=== PATIENT | male | born 1930 | race Caucasian/White ===

== ENCOUNTER 2017-03-17 07:31 | Inpatient (IN) | payer MEDICARE ==
[~2017-03-17] VITALS: Ht 182.9 cm; Wt 88.2 kg
--- NOTE | ~2017-03-17 | PN ---
[facility] [address] [place], [place] [address] Draft This is a hospital day #2, I admitted him yesterday with a clinical diagnosis supported by x-rays of gastric outlet obstruction, likely due to taking too much Naprosyn for back pain and he subsequently showed up with this problem for about a week. We put him in yesterday, NG tube, hospitalist consult, IV fluid management, and the hospitalist is helping us with him also and he is on a proton pump drip, Protonix 10 mg an hour. Overnight, he has done okay. His vital signs have done alright. His blood pressure this morning was 122/59, his pulse was 70, respiratory rate 16, temperature is 98.7, pulse oximetry is 95 to 98 overnight. Hospitalist is helping manage his medicine and his blood pressure issues. NG tube is not putting a whole lot out at 240. His urine output is quite adequate at 1530. He has had 3263 in IV fluid. He was somewhat dehydrated when he came in. PHYSICAL EXAMINATION ABDOMEN: On examination his belly is much softer and I can palpate, can't feel mass or anything really worrisome. LABORATORY DATA His acute abdomen series this morning shows no free air, stool in his colon. The remainder of his labs were okay. His white count is still in the 8000 range with a normal diff and his chem panel was okay with normal amylase and lipase and normal LFTs. PLAN Discussed his management with the hospitalist and with surgical consultation at [facility] concerning plans on this fellow. Right now, he is stable. I do not think we should scope him yet, because I do not want to change what looks like probably a contained perforation into a free perforation and having to do an emergency surgery on this fellow. With a little bit of luck, with support and proton pump inhibitor drip, Protonix 10 mg an hour, he very well may have some reduction in his inflammation and open up. The plan is to just sit tight on him and get a PICC line, probably start some TPN, and just watch him closely over the weekend and probably get upper GI, put some Gastrografin down his NG tube on Wednesday to see if he is completely obstructed or see if things open up a little bit. If things open up a little bit, he likely could then be educated about not taking any more naproxen and hopefully get him on something like tramadol for pain and keep him off the aspirin and keep him on proton pump inhibitors and possibly get elective EGD on him here next month to 6 weeks to prove that this is a malignancy, I do not think it is with his history, anyhow the game plan is to treat him expectantly for the time being and see where this go. If it becomes a complete obstruction and does not resolve, he likely should have surgery and then I would discuss this with the local surgeons and/or the surgeons at [facility]. PATIENT NAME: LUIZ PEREZ BRANDI PROGRESS NOTE DATE OF : 31 PHYSICIAN: OLESYA OAKES MD REPORT #: [id number] REPORT IS CONFIDENTIAL AND NOT TO BE RELEASED WITHOUT AUTHORIZATION [address] [place] [address] Draft MD PING Benton/Modl /[id number] CC: PATIENT NAME: PEREZLUIZ PROGRESS NOTE DATE OF : 31 PHYSICIAN: OLESYA OAKES MD REPORT #: [id number] REPORT IS CONFIDENTIAL AND NOT TO BE RELEASED WITHOUT AUTHORIZATION
--- NOTE | ~2017-03-17 | PN ---
[facility] [address] [place], [place] [address] Draft DATE OF SERVICE: 03/19/2017 IDENTIFICATION: This is an 87-year-old male who I admitted almost 48 hours ago for apparent gastric outlet obstruction, likely secondary to doubling up on his Naprosyn for back pain and also taking aspirin, and came in with what looks like pyloric/proximal duodenal obstruction, probably due to ulcer disease and remotely possibly due to malignancy. We have been treating him with nasogastric suctioning, got a PICC line and TPN is running in at 50 mL per hour. He has excellent urine output and he is on proton pump inhibitor drip that being Protonix. He seems to be doing okay. His vital signs are fine. Blood pressure has been good. Blood pressure this morning was 130/56, respiratory rate 15, pulse 71, afebrile. Urine output today has been 1500 so far, looks like only about 200 out of his NG tube. It has a little bit of color to it, which I think is good, because that means that it has bowel staining or kind of opening up a little bit, we think. When he first came in, it looked like pure white hydrochloric acid and he seems to be doing okay. We did not have any current labs on him today. Yesterday, his white count was 8.2, hematocrit was 41.9, platelets were 183. He has SCDs. He is ambulating adequately and his belly is soft, nothing has really changed. My game plan after discussing him with other consultants has been to sit tight, keep his proton pump inhibitor drip going at least 48, possibly 72 hours and then switch him over to Protonix 40 mg IV b.i.d., ride him through the weekend on TPN to keep him nutritionally supported and likely get a Gastrografin upper GI on Wednesday through his NG tube and see if he has opened up some. If he has opened up some, we could possibly get his NG tube out, give him clear liquid diet and hopefully send him home on liquid diet and tell him to stay on that for a quite a while and at some point in the future to get EGD when all this has settled down. I am a little bit scarred to do EGD right now and on his CT scan, it looks like he could have contained perforation or else he has just got some real chewed up mucosa and submucosa at his pylorus and duodenum, but I do n ot want to tempt the devil and scope him and maybe make him into a wide open perforation and emergency surgery right now with this 87-year-old, I think less is better. Should he have a complete obstruction, then he likely would need surgical intervention on Wednesday. He would likely need surgical intervention, possibly just gastrojejunostomy and keep him on proton pump inhibitors lifetime and then the decision would be have to be made whether that should be done at a larger institution versus our [facility]. There are specialists who likely could do this with a laparoscope and minimize the invasiveness, etc., etc., etc. All in all, right now, he seems to be doing okay, the hospitalist is following up with him at the present time, I think I have decided to withhold Lovenox or subcu heparin, I do not want to get this darn ulcer or whatever it is bleeding. He is ambulating well and he is tolerating SCDs nicely and right now, we are going with that for DVT prophylaxis. All in all, he seems to be doing okay. I will order some labs drawn in for tomorrow morning and just follow him closely with the PATIENT NAME: LUIZ PEREZ BRANDI PROGRESS NOTE DATE OF : 31 PHYSICIAN: OLESYA OAKES MD REPORT #: [id number] REPORT IS CONFIDENTIAL AND NOT TO BE RELEASED WITHOUT AUTHORIZATION [facility] [address] [place], [place] [address] Draft hospitalist and pray like heck that he improves adequately enough to discharge him without any further interventions. MD PING Benton/Enoch /[id number] CC: PATIENT NAME: LUIZ PEREZ BRANDI PROGRESS NOTE DATE OF : 31 PHYSICIAN: OLESYA OAKES MD REPORT #: [id number] REPORT IS CONFIDENTIAL AND NOT TO BE RELEASED WITHOUT AUTHORIZATION
--- NOTE | ~2017-03-17 | HP ---
[facility] [address] [place], [place] [address] Draft DATE OF ADMISSION: 03/17/17 IDENTIFICATION This is an 87-year-old male, who was seen by the ER physician with a chief complaint of could not eat, nausea, and vomiting. An ER doctor worked him up, found him to have normal labs as far as his white count, hematocrit, platelets, might be a little bit dry, normal CMP with normal amylase and lipase and LFTs and ended up getting a CT scan, which showed an apparent gastric outlet obstruction. This is likely either an ulcer or a malignancy or both. Of note, he has been taking Naproxen and Aleve, I think both for arthritis pain, maybe only one of them, and he has also been on aspirin as potential causes for ulcers. CT scan, I have not yet gone over it with radiologist, but it looks like he has got plenty of edema at the pylorus and the first part of the duodenum, no free air. Basically, the short and long of it is extensive PARQ was accomplished by myself for this patient concerning options, which include initial management here, put him in, hydrate him onn a sogastric suction, likely do an EGD on him tomorrow or the next day and see what we determine is going on. I did tell him that I do not do balloon dilatations of the duodenum or the antrum or the stomach and if that would save him surgery that would have to be done by Gastroenterology either at the [facility] or at another institution and I told him if he had a malignancy, it is pretty serious step in the option of going to a larger place versus having it done here would be discussed by me, with him and his friends ,we will cross those bridges as necessary. He preferred to stay here initially, so I am going to admit him at the hospitalist consult on him, put him on a proton pump inhibitor, Protonix drip 10 mg an hour, give him pain management, nausea management, 18-Romanian NG tube and see where this goes. He does know that his urine has gone a little bit darker and I do note that his BUN is 27. PAST MEDICAL HISTORY The patient is not allergic to anything. He takes a fair amount of medicines he brought with him in the bag, Naproxen 1 in the morning and 1 in the evening, Aleve OTC, I am not sure whether or not he has been taking both of them and he cannot really tell me, Atenolol 25 mg daily, Aspirin 81 mg daily, Amlodipine 2.5 mg daily, Atorvastatin 20 mg at bedtime, Terazosin 4 mg at bedtime, Lisinopril 5 mg daily. OPERATIONS Included hernia 5 years ago and a pacemaker. He has a history of hypertension. He says he has got a history of diabetes, but not tuberculosis, seizures, or transfusions. He says he quit smoking 50 years ago, rarely uses alcohol and has no history of thromboembolic disease. SOCIAL HISTORY He is a . He has 1 child in [place], but did not give me any name or phone number. He was in the [place] years ago. He lives in [place]. PATIENT NAME: LUIZ PEREZ BRANDI HISTORY AND PHYSICAL DATE OF : 31 PHYSICIAN: OLESYA OAKES MD REPORT #: [id number] REPORT IS CONFIDENTIAL AND NOT TO BE RELEASED WITHOUT AUTHORIZATION [facility] [address] [place], [place] [address] Draft REVIEW OF SYSTEMS Negative for NM, negative for stroke, negative for Lyme disease. Positive for his present illness, positive for arthritis and old age as far as musculoskeletal disease goes, positive for easy bruising of his skin. Negative for lymphatic problems, negative for blood problems such as hepatitis. Positive for what sounds like prostatism. Negative for neurological problems such as anxiety or depression and negative for motor and sensory, speech, I presume walked in here. PHYSICAL EXAMINATION VITAL SIGNS: Recorded in the ER. They were all okay. I do not have right in front of me. He has got an EKG, which shows ventricular pacing. HEAD, EYES, EARS, NOSE AND THROAT: Normal. NECK: Without jugular venous distention, masses, or bruits. CHEST: Clear. HEART: Regular rate and rhythm. I do not hear any rubs, gallops, or murmurs. He has got a left anterior chest pacemaker subcutaneously. BELLY: He does not relax real good. He is a robust, big fellow. I do not detect any peritonitis or tenderness, but he will not relax and let me feel see if I can feel a mass. EXTREMITIES: Femoral pulses as well as pedal pulses were normal. I could not feel his aortic pulsation because he was not relax. RECTAL: He says he is up-to-date on rectal exam. IMPRESSION An elderly fellow with some medical comorbidities, primarily probably hypertension and maybe arythmia, I'm not sure why he is on Amlodipine. He may have gotten confused about medication for arthritis and may just have bad ulcer. He also could have a malignancy. PLAN To get him an NG tube, IV hydration, follow him closely, get the hospitalist to see him. I will go over his CT with the radiologist in person when that person is available. IV fluids, repeat his labs in the morning, get acute abdomen series in the morning. As long as everything goes okay, likely add him on sometime tomorrow for EGD with biopsies if possible and see where all this shakes out. With a little bit luck, he get well without further to do and likely need to be rescoped again at some point in the future and hopefully it is not a malignancy and he can have fun being an old fellow. He certainly understands the options and the choices that we have. If he were to have a malignancy would be a big decision whether or not to have surgery done here versus elsewhere and if we did not give over his gastric outlet obstruction that quite is big as malignancy decision. Anyhow, I have given him certainly multiple choices and tried to educate him. We will also put SCDs on him and we will make him an inpatient for starters and see PATIENT NAME: LUIZ PEREZ HISTORY AND PHYSICAL DATE OF : 31 PHYSICIAN: OLESYA OAKES MD REPORT #: [id number] REPORT IS CONFIDENTIAL AND NOT TO BE RELEASED WITHOUT AUTHORIZATION [facility] [address] [place], [place] [address] Draft where all this goes. MD PING Benton/Karolynl /[id number] cc: Rey Monterroso DO PATIENT NAME: LUIZ PEREZ HISTORY AND PHYSICAL DATE OF : 31 PHYSICIAN: OLESYA OAKES MD REPORT #: [id number] REPORT IS CONFIDENTIAL AND NOT TO BE RELEASED WITHOUT AUTHORIZATION
[2017-03-17] MEDS ORDERED: TERAZOSIN HCL2 MG PO (07:48)
[2017-03-17] MEDS ORDERED: ASPIR-LOW81 MG PO (07:48)
[2017-03-17] MEDS ORDERED: LIPITOR20 MG PO (07:49)
[2017-03-17] MEDS ORDERED: LISINOPRIL5 MG PO (07:49)
[2017-03-17] MEDS ORDERED: NAPROXEN500 MG PO (07:50)
[2017-03-17] MEDS ORDERED: AMLODIPINE BES2.5 MG PO (07:50)
[2017-03-17] MEDS ORDERED: ATENOLOL25 MG PO (07:51)
[2017-03-17] MEDS ORDERED: FLONASE ALLERG9.9 ML NAS (15:47)
[2017-03-17] MEDS ORDERED: REFRESH TEARS15 ML OU (15:56)
[2017-03-17] MEDS ORDERED: PRESERVISION A1 EAC3 PO (15:57)
--- NOTE | 2017-03-17 15:59 | EKG ---
[facility] [address] [facility] [place], [place] [address] Signed Ventricular-paced rhythm Abnormal ECG No previous ECGs available Confirmed by MARYBEL SOLO MD ([id number]) on 03/17/2017 3:58:46 PM Electronically Signed By: MARYBEL SOLO MD 03/17/17 1559 PATIENT NAME: LUIZ PEREZ BRANDI Electrocardiogram DATE OF : 32 PHYSICIAN: MARYBEL SOLO MD REPORT #: [id number] REPORT IS CONFIDENTIAL AND NOT TO BE RELEASED WITHOUT AUTHORIZATION
[2017-03-17] MEDS ORDERED: B-12 DOTS500 MCG PO (16:01)
[2017-03-24] MEDS ORDERED: LEVAQUIN500 MG PO (08:13)
--- NOTE | 2017-03-25 06:43 | DS ---
[facility] [address] [place], [place] [address] Signed DATE OF DISCHARGE: 03/24/17 FINAL DIAGNOSES Duodenal ulcer with high-grade partial obstruction. Urinary tract infection. PROCEDURES CT scan of abdomen and pelvis. Multiple chest and abdominal x-rays. Upper GI. Placement of right upper extremity PICC line. HISTORY OF PRESENT ILLNESS Grover is an 87-year-old gentleman who lives locally and still drives around, but he does have a friend who helps him by the name of Diego Tripp. He is a diabetic as well. Overall, he does well. He said he has been traveling all the way up [address] to the [facility] in [place], [place], for his general medical care. That is becoming more and more of difficult issue for him. He has also been on naproxen and aspirin. He developed epigastric abdominal pain with bloating and nausea and vomiting. He finally came to the emergency room for evaluation. In the emergency room, he was found to have urinary tract infection. That grew out Proteus mirabilis. He has been on Levaquin in that regard although he said he never had any symptoms. We see that he takes Terazosin for his BPH. He had a CT scan done in the emergency room. There was significant inflammation and thickening around the pyloric channel and the first portion of the duodenum with evidence of duodenal ulcer. There was even mild inflammation of the head of the pancreas. There was no free air. Consequently, he was admitted as above. HOSPITAL COURSE Grover was admitted to the local surgeon Dr. Miller. He was treated conservatively, and the PICC line had been placed and TPN started. He was also placed on Protonix drip. Within a few days then, his abdomen settled down. The NG tube was removed and he tolerated that well. An upper GI was performed and although the contrast went through slowly, he did pass clear through the duodenum and out into the jejunum. Repeat x-ray showed there was no free air. He consequently was started on liquid diet and moved up to a full liquid diet which he has tolerated very well. We did have our dietitian come and see him as well. He told me he already has diabetic protein drinks at home that he utilizes. We were waiting for stool to be sent off for H. pylori and that is still pending. In the meantime, I was asked to take over as a local general surgeon, and we also had our Internal Medicine Service following him. He is on three different antihypertensives and also terazosin for his BPH. His blood pressure has been fine for us, so we have left him on his Atenolol, but the other two we held here in the hospital. At this point, he is doing markedly well. He is ambulating the hallway. He is Electronically Signed By: KAMRON ALMARAZ MD 03/25/17 0643 PATIENT NAME: GROVER PEREZ BRANDI DISCHARGE SUMMARY DATE OF : 31 PHYSICIAN: KAMRON ALMARAZ MD REPORT #: [id number] REPORT IS CONFIDENTIAL AND NOT TO BE RELEASED WITHOUT AUTHORIZATION [address] [address] Signed tolerating his diet. His abdomen is completely flat and benign. I had an extensive conversation with him yesterday as well as today. I also spoke to our pharmacist. We are going to look through his medications, and we are going to convert him to liquids or crushable forms so he can do that for 2 - 4 weeks until his edema settles down from the duodenal ulcer. DISCHARGE PLANS AND MEDICATIONS Grover is going to be discharged to home with Levaquin 500 mg p.o. daily for four days, with no refills. We are going to stop the Amlodipine, Lisinopril, Aspirin, Naproxen, and Ibuprofen. He can resume his Atenolol, Atorvastatin, Refresh tears, Vitamin B12, Flonase, Terazosin, and PreserV ision. We are going to continue him on full liquid diet, and he has been well instructed in that regard. We have made arrangements for him to follow up with Dr. Nathan at 2 o'clock today so he will have an Senior Windows Engineer here in [place] close to home. He will also see Dr. Smita Hernandes as an outpatient for his BPH and his urinary tract infection also here in [place], [place], and he will come see me in 10-14 days for follow-up with the duodenal ulcer and in due time will pass the gastroscope and look at this area. He can perform his activities of daily living including walking up and down stairs and showering and bathing as usual. He can drive as needed. I have reviewed this with him yesterday and today. He has expressed understanding and agrees with the above plan. MD FRANKO Maurer/Enoch /[id number] cc: MD Dennis Morrison MD Electronically Signed By: KAMRON ALMARAZ MD 03/25/17 0643 PATIENT NAME: GROVER PEREZ BRANDI DISCHARGE SUMMARY DATE OF : 31 PHYSICIAN: KAMRON ALMARAZ MD REPORT #: [id number] REPORT IS CONFIDENTIAL AND NOT TO BE RELEASED WITHOUT AUTHORIZATION
== END 2017-03-24 13:35 | disposition home or self-care (01) | DRG 381 ==
LOC: ED 07:31 → MS 10:49
PROVIDERS: ADMIT Surgery
PROC: 02HV33Z Insertion of Infusion Device into Superior Vena Cava, Percutaneous Approach (ICD-10-PCS; principal; 2017-03-18)
DX: K31.5 Obstruction of duodenum (principal); N39.0 Urinary tract infection, site not specified; K26.9 Duodenal ulcer, unspecified as acute or chronic, without hemorrhage or perforation; E11.9 Type 2 diabetes mellitus without complications; B96.4 Proteus (mirabilis) (morganii) as the cause of diseases classified elsewhere; N40.0 Benign prostatic hyperplasia without lower urinary tract symptoms; I10 Essential (primary) hypertension; Z79.82 Long term (current) use of aspirin; Z87.891 Personal history of nicotine dependence; Z79.84 Long term (current) use of oral hypoglycemic drugs
CPT/HCPCS: 36415; 36556; 71010; 74022; 74177; 74246; 80048; 80053; 80061; 81001; 82150; 83690; 83735; 84134; 84484; 85025; 85610; 85730; 86850; 86900; 86901; 87077; 87088; 87186; 93005; 93010; J1170; J1956; J2405; J3430; J3475; J7030; J7120; Q9967